=== PATIENT | female | born 1955 | race Caucasian/White ===

== ENCOUNTER 2016-06-09 08:00 | Outpatient (CLI) | payer MEDICARE, MEDICAID | END 2016-06-09 08:01 | disposition home or self-care (01) | DX: E11.9 Type 2 diabetes mellitus without complications (principal); E78.5 Hyperlipidemia, unspecified ==

== ENCOUNTER 2016-08-29 12:19 | Outpatient (CLI) | payer MEDICARE, MEDICAID ==
--- NOTE | 2016-08-30 16:31 | Mammography Report ---
DIGITAL SCREENING LEFT MAMMOGRAM: 08/29/2016 CLINICAL INDICATION: A 61-year-old patient with history of late childbearing, personal history of ri ght breast cancer status post mastectomy. COMPARISON: 03/2015, 09/2013, 09/2012, 08/2011. TECHNIQUE: Routine CC and MLO projections were obtained of the breasts. FINDINGS: The left breast again demonstrates heterogeneously dense fibroglandular parenchyma. No aleman spicious masses, clustered microcalcifications, or regions of architectural distortion are identified . IMPRESSION: BENIGN FINDINGS. RECOMMENDATION: Routine annual screening unless otherwise clinically indicated. BI-RADS category 2, benign findings. STANDARD QUALIFYING STATEMENTS 1. This examination was reviewed with the aid of Computer-Aided Detection (CAD). 2. A negative or benign imaging report should not delay biopsy if clinically suspicious findings are present. Consider surgical consultation if warranted. More than 5% of cancers are not identified by i maging. 3. Dense breasts may obscure an underlying neoplasm. JOB #: [id number] EXT JOB #:[id number]
== END 2016-08-29 12:20 | disposition home or self-care (01) ==
LOC: DI 12:19
PROVIDERS: ATTEND Family Medicine
DX: Z12.31 Encounter for screening mammogram for malignant neoplasm of breast (principal); Z85.3 Personal history of malignant neoplasm of breast; Z90.11 Acquired absence of right breast and nipple

== ENCOUNTER 2016-12-26 14:54 | Outpatient (CLI) | payer MEDICARE, MEDICAID ==
[2016-12-26 19:38] LABS: CHOL/HDL RATIO 4.9 (<4.4); CHOLESTEROL 222 mg/dL; HDL CHOLESTEROL 45 mg/dL; LDL/HDL RATIO 2.4 (<4.4); TRIGLYCERIDES 352 mg/dL; VLDL CHOLESTEROL 70 mg/dL
[2016-12-26 20:50] LABS: HEMOGLOBIN A1C 0.66 g/dL
== END 2016-12-26 14:55 | disposition home or self-care (01) ==
LOC: LAB.WCP 14:54
PROVIDERS: ATTEND Family Medicine
DX: E11.9 Type 2 diabetes mellitus without complications (principal)
CPT/HCPCS: 36415; 80061; 83036; 84443

== ENCOUNTER 2017-04-25 12:15 | Outpatient (CLI) | payer MEDICARE, MEDICAID ==
[2017-04-25 19:12] LABS: BASOPHILS # (AUTO) 0.1 10^3/uL (0.0-0.1); BASOPHILS % (AUTO) 1.1 %; EOSINOPHILS # (AUTO) 0.2 10^3/uL (0.0-0.7); EOSINOPHILS % (AUTO) 1.8 %; HGB - HEMOGLOBIN 11.1 g/dL (12.0-16.0); LYMPHOCYTES # (AUTO) 1.6 10^3/uL (1.5-3.5); LYMPHOCYTES % (AUTO) 17.7 %; MEAN CORPUSCULAR HEMOGLOBIN 28.3 pg (27.0-31.0); MEAN CORPUSCULAR VOLUME 85.7 fL (81.0-99.0); MEAN PLATELET VOLUME 9.2 fL (7.9-10.8); MONOCYTES # (AUTO) 0.4 10^3/uL (0.0-1.0); MONOCYTES % (AUTO) 4.3 %; NEUTROPHILS # (AUTO) 6.6 10^3/uL (1.5-6.6); NEUTROPHILS % (AUTO) 75.1 %; PLT - PLATELET COUNT 330 10^3/uL (130-450); RED BLOOD COUNT 3.93 10^6/uL (4.20-5.40); RED CELL DISTRIBUTION WIDTH 14.1 % (12.0-15.0); WHITE BLOOD COUNT 8.8 x10^3/uL (4.8-10.8)
[2017-04-25 19:14] LABS: ALBUMIN 3.6 g/dL (3.2-5.5); ALKALINE PHOSPHATASE 128 IU/L (42-121); ALT ALANINE AMINOTRANSFERASE 16 IU/L (10-60); AST ASPARTATE AMINOTRANSFERASE 21 IU/L (10-42); BILIRUBIN,TOTAL 0.2 mg/dL (0.2-1.0); BUN - BLOOD UREA NITROGEN 25 mg/dL (6-20); CALCIUM 9.2 mg/dL (8.5-10.3); CARBON DIOXIDE - CO2 24 mmol/L (21-32); CHLORIDE 104 mmol/L (101-111); CHOL/HDL RATIO 4.9 (<4.4); CHOLESTEROL 224 mg/dL; CREATININE 0.9 mg/dL (0.4-1.0); GFR - MDRD 64 (>89); GLUCOSE 168 mg/dL (70-100); HDL CHOLESTEROL 46 mg/dL; LDL CHOLESTEROL,CALCULATED 118 mg/dL; LDL/HDL RATIO 2.6 (<4.4); SODIUM 138 mmol/L (135-145); TOTAL PROTEIN 7.3 g/dL (6.7-8.2); VLDL CHOLESTEROL 60 mg/dL
[2017-04-25 20:02] LABS: HB2 TOTAL 11.8 g/dL; HEMOGLOBIN A1C 0.57 g/dL; HEMOGLOBIN A1C % 6.6 % (4.6-6.2)
== END 2017-04-25 12:16 | disposition home or self-care (01) ==
LOC: LAB.WCP 12:15
PROVIDERS: ATTEND Family Medicine
DX: E11.9 Type 2 diabetes mellitus without complications (principal)
CPT/HCPCS: 36415; 80053; 80061; 83036; 83721; 84443; 85025

== ENCOUNTER 2017-05-23 16:03 | Emergency (ER) | payer MEDICARE, MEDICAID ==
[2017-05-23 16:12] VITALS: BP 121/66
--- NOTE | 2017-05-23 16:57 | XRAY Preliminary Report ---
Exam: XR FOOT 3 VIEW LT IMPRESSION: No acute osseous abnormality with findings suggestive of prior second toe surgery and min [id number] multifocal DJD. [facility] SITE ID: [id number]
--- NOTE | 2017-05-23 17:02 | XRAY Report ---
EXAM: LEFT FOOT RADIOGRAPHY EXAM DATE: 05/23/2017 04:48 PM. CLINICAL HISTORY: Lateral dorsal pain. History of hammertoe surgery and revision. COMPARISON: None. TECHNIQUE: 3 views. FINDINGS: Bones: No acute displaced fracture. No suspicious focal osseous lesion. Moderate plantar traction ent hesophyte. Normal variant os peroneum present. There is fusion of the proximal and middle second phal anges, possibly related to history of hammertoe surgery and revision. Joints: No dislocation/subluxation. [id number] degenerative osteophytic spurring in the midfoot as well mild degenerative spurring at the fifth TMT joint. Minimal degenerative changes at the first MTP and IP joints. Soft Tissues: No focal soft tissue swelling appreciated. IMPRESSION: No acute osseous abnormality with findings suggestive of prior second toe surgery and min [id number] multifocal DJD. [facility] Referring Provider Line: [phone] SITE ID: [id number]
--- NOTE | 2017-05-23 17:06 | ED Physician Documentation ---
PD HPI LOWER EXT INJURY - Stated complaint Stated Complaint: L FOOT PX - Chief complaint Chief Complaint: Ext Problem - History obtained from History obtained from: Patient - History of Present Illness PD HPI LOW EXT INJURY LOCATION: Left, Foot Type of injury: Other (use at cardiac rehab) Where injury occurred: Other (hospital) Timing - onset: Yesterday Timing - duration: Hours Timing - details: Gradual onset, Still present Improved by: Rest Worsened by: Moving, Palpating Associated symptoms: No: Weakness, Numbness, Swelling Contributing factors: No: Anticoagulated Similar symptoms before: Has not had sx before Recently seen: Not recently seen - Additional information Additional information: 61 year old female with a history of hypertension and diabetes has developed pain in the lateral aspect of her left foot. She has been into cardiac rehab and she has been using an elliptical. She feels that she has been wearing good supportive shoes when she has been performing these tasks. Last night she began to develop pain in the lateral aspect of her foot and on the dorsum of her foot. Review of Systems Constitutional: denies: Fever Eyes: denies: Decreased vision Ears: denies: Ear pain Nose: denies: Congestion Throat: denies: Sore throat Cardiac: denies: Chest pain / pressure, Palpitations Respiratory: denies: Dyspnea, Cough GI: denies: Abdominal Pain, Nausea, Vomiting : denies: Dysuria, Frequency PD PAST MEDICAL HISTORY - Past Medical History Cardiovascular: Hypertension Respiratory: CPAP use, Shortness of breath, Sleep apnea Endocrine/Autoimmune: Type 2 diabetes GI: GERD : None HEENT: None Psych: Depression Musculoskeletal: Osteoarthritis, Fibromyalgia, Other Derm: None - Past Surgical History Past Surgical History: Yes Ortho: Carpal Tunnel surgery, Other /MANAGER DIALYSIS: Tubal ligation, Mastectomy - Present Medications Home Medications: Ambulatory Orders Medication Instructions Recorded Confirmed Olmesartan Medoxomil [Benicar] 40 mg PO DAILY 08/01/12 04/24/17 Pramipexole [Mirapex] 0.5 mg PO QPM 08/01/12 04/24/17 Aspirin Chewable [[place] 81 mg PO DAILY 11/28/12 04/24/17 Aspirin] Venlafaxine HCl 37.5 mg PO BID 09/10/13 04/24/17 Anastrozole [Arimidex] 1 mg PO DAILY 03/06/14 04/24/17 Ibuprofen 800 mg PO BID 03/06/14 04/24/17 Ferrous Sulfate 325 mg PO DAILY 05/17/14 04/24/17 Gabapentin 300 mg PO DAILY 05/17/14 04/24/17 Lysine HCl [l-Lysine] 500 mg PO DAILY 05/17/14 04/24/17 Acyclovir 400 mg PO BID 06/10/14 04/24/17 Naproxen 2 tab PO BID 08/31/15 04/24/17 Amlodipine Besylate 1 tab PO DAILY 04/24/17 04/24/17 Carvedilol 1 tab PO BID 04/24/17 04/24/17 Isosorbide Mononitrate [Isosorbide 1 tab PO DAILY 04/24/17 04/24/17 Mononitrate ER] Ticagrelor [Brilinta] 1 tab PO BID 04/24/17 04/24/17 - Allergies Allergies/Adverse Reactions: Allergies Allergy/AdvReac Type Severity Reaction Status Date / Time pravastatin Allergy Severe Lips swell Verified 06/05/14 12:12 codeine [Codeine] Allergy Intermediate Rash Verified 06/05/14 12:13 morphine Allergy Intermediate Itching/Diz Verified 06/05/14 12:13 zieness Penicillins Allergy Intermediate Rash Verified 06/05/14 12:13 hydromorphone HCl * Allergy Respiratory Verified 06/11/14 07:14 [From Dilaudid] lisinopril AdvReac Mild cough Verified 06/05/14 12:13 tape AdvReac Intermediate Blisters Uncoded 05/17/14 12:06 - Social History Does the pt smoke?: No Smoking Status: Never smoker Does the pt drink ETOH?: No Does the pt have substance abuse?: No - Immunizations Immunizations are current?: Yes - POLST Patient has POLST: No PD ED PE NORMAL - Vitals Vital signs reviewed: Yes (Normal) - General General: Alert and oriented X 3, No acute distress, Well developed/nourished - HEENT HEENT: Atraumatic (Normal), PERRL - Neck Neck: Supple, no meningeal sign - Respiratory Respiratory: No respiratory distress - Derm Derm: Normal color, Warm and dry, No rash - Extremities Extremities: No deformity, No edema, Other (There is point tenderness to the lateral aspect of the foot and over the dorsum of the lateral aspect more so on the distal fifth metatarsal than the proximal fifth there is no swelling or point tenderness over the medial or lateral malleolus.) Results - Vitals Vitals: Vital Signs - 24 hr 05/23/17 16:09 Temperature 35.9 C L Heart Rate 88 Respiratory 18 Rate Blood Pressure 121/66 O2 Saturation 99 Oxygen O2 Source Room air - Rads (name of study) foot Radiology: Prelim report reviewed (Impression: No acute osseous abnormality with findings suggestive of prior second toe surgery and minimal to mild multifocal DJD), EMP read indepedently, See rad report PD MEDICAL DECISION MAKING - ED course Complexity details: reviewed results, re-evaluated patient, considered differential, d/w patient, d/w family ED course: 61-year-old female with an injury to her foot which is likely an overuse injury I have asked the patient to reduce her activity wear supportive shoes and resume activity in 2-5 days Departure - Departure Disposition: 01 Home, Self Care Clinical Impression: Strain of foot, left Qualifiers: Encounter type: initial encounter Qualified Code(s): S96.912A - Strain of unspecified muscle and tendon at ankle and foot level, left foot, initial encounter Condition: Stable Instructions: ED Sprain Foot Follow-Up: Олег Hubbard DO [Primary Care Provider] -
== END 2017-05-23 17:18 | disposition home or self-care (01) ==
LOC: ED 16:03
DX: S96.912A Strain of unspecified muscle and tendon at ankle and foot level, left foot, initial encounter (principal); I10 Essential (primary) hypertension; E11.9 Type 2 diabetes mellitus without complications; Z79.82 Long term (current) use of aspirin
CPT/HCPCS: 99283

== ENCOUNTER 2017-08-30 10:44 | Outpatient (CLI) | payer MEDICARE, MEDICAID ==
--- NOTE | 2017-09-04 11:42 | Mammography Report ---
UNILATERAL LEFT MAMMOGRAM: 08/30/2017 HISTORY: Status post right mastectomy for cancer. COMPARISON: 08/29/2016, 04/10/2015, 10/08/2013, 10/01/2012, 05/18/2012, 05/11/2012 and 10/04/2011. TECHNIQUE: Unilateral left CC and MLO projections. FINDINGS: The breast tissue is heterogeneously dense. There is no dominant mass, architectural distortion, skin thickening, clustered suspicious microcalcifications or obvious interval change compared with priors. IMPRESSION: NEGATIVE. BI-RADS CATEGORY 1 - NEGATIVE. RECOMMENDATION: SUGGEST ROUTINE LEFT BREAST FOLLOWUP IN 12 MONTHS. STANDARD QUALIFYING STATEMENTS 1. This examination was reviewed with the aid of Computer-Aided Detection (CAD). 2. A negative or benign imaging report should not delay biopsy if clinically suspicious findings are present. Consider surgical consultation if warranted. More than 5% of cancers are not identified by imaging. 3. Dense breasts may obscure an underlying neoplasm. TD: 08/31/2017 10:06
== END 2017-08-30 10:45 | disposition home or self-care (01) ==
LOC: DI 10:44
PROVIDERS: ATTEND Internal Medicine Hematology & Oncology
DX: Z12.31 Encounter for screening mammogram for malignant neoplasm of breast (principal); Z85.3 Personal history of malignant neoplasm of breast; Z90.11 Acquired absence of right breast and nipple

== ENCOUNTER 2017-11-16 11:44 | Outpatient (CLI) | payer MEDICARE, MEDICAID ==
[2017-11-16 19:08] LABS: BASOPHILS # (AUTO) 0.1 10^3/uL (0.0-0.1); BASOPHILS % (AUTO) 0.9 %; EOSINOPHILS # (AUTO) 0.2 10^3/uL (0.0-0.7); EOSINOPHILS % (AUTO) 2.3 %; HGB - HEMOGLOBIN 12.1 g/dL (12.0-16.0); LYMPHOCYTES # (AUTO) 1.8 10^3/uL (1.5-3.5); MEAN CORPUSCULAR HEMOGLOBIN 28.2 pg (27.0-31.0); MEAN CORPUSCULAR HGB CONC 33.2 g/dL (32.0-36.0); MEAN CORPUSCULAR VOLUME 85.1 fL (81.0-99.0); MEAN PLATELET VOLUME 8.9 fL (7.9-10.8); MONOCYTES # (AUTO) 0.4 10^3/uL (0.0-1.0); NEUTROPHILS # (AUTO) 6.4 10^3/uL (1.5-6.6); NEUTROPHILS % (AUTO) 71.8 %; PLT - PLATELET COUNT 338 10^3/uL (130-450); RED BLOOD COUNT 4.27 10^6/uL (4.20-5.40); RED CELL DISTRIBUTION WIDTH 15.3 % (12.0-15.0)
[2017-11-16 19:21] LABS: ALBUMIN 3.8 g/dL (3.2-5.5); ALBUMIN/GLOBULIN RATIO 1.1 (1.0-2.2); ALKALINE PHOSPHATASE 141 IU/L (42-121); ALT ALANINE AMINOTRANSFERASE 22 IU/L (10-60); AST ASPARTATE AMINOTRANSFERASE 23 IU/L (10-42); BILIRUBIN,TOTAL 0.7 mg/dL (0.2-1.0); BUN - BLOOD UREA NITROGEN 26 mg/dL (6-20); CALCIUM 9.6 mg/dL (8.5-10.3); CARBON DIOXIDE - CO2 26 mmol/L (21-32); CHLORIDE 105 mmol/L (101-111); CHOL/HDL RATIO 5.3 (<4.4); CHOLESTEROL 277 mg/dL; CREATININE 0.8 mg/dL (0.4-1.0); GFR - MDRD 73 (>89); GLUCOSE 139 mg/dL (70-100); HDL CHOLESTEROL 52 mg/dL; LDL CHOLESTEROL,CALCULATED 175 mg/dL; LDL/HDL RATIO 3.4 (<4.4); SODIUM 139 mmol/L (135-145); TOTAL PROTEIN 7.2 g/dL (6.7-8.2); VLDL CHOLESTEROL 50 mg/dL
[2017-11-16 19:26] LABS: THYROID STIMULATING HORMONE 0.85 uIU/mL (0.34-5.60)
[2017-11-16 20:55] LABS: HB2 TOTAL 12.7 g/dL; HEMOGLOBIN A1C 0.67 g/dL
== END 2017-11-16 11:45 ==
LOC: LAB.WCP 11:44
PROVIDERS: ATTEND Family Medicine
DX: E11.9 Type 2 diabetes mellitus without complications (principal); R41.3 Other amnesia
CPT/HCPCS: 36415; 80053; 80061; 82607; 83036; 83721; 84443; 85025

== ENCOUNTER 2018-10-29 13:53 | Outpatient (CLI) | payer MEDICARE, MEDICAID ==
--- NOTE | 2018-10-30 09:00 | Mammography Report ---
Reason: SCREENING MAMMO, R BREAST CANCER Procedure Date: 10/29/2018 Accession Number: [id number] / [id number] Procedure: [facility]YA[facility] - Screening Mammo Left w/Gary CPT Code: FULL RESULT: EXAM: Screening Mammo Left w/Gary DATE: 10/29/2018 2:28 PM CLINICAL HISTORY: Screening encounter. History of late childbearing. Personal history of right breast cancer status post mastectomy in 2012. TECHNIQUE: (L) - Left CC, laterally exaggerated CC, MLO views were obtained. COMPARISON: 08/30/2017 through 10/08/2013. PARENCHYMAL PATTERN: (D) - The breast(s) demonstrate(s) heterogeneously dense fibroglandular parenchyma. FINDINGS: There are no suspicious masses, calcifications, or areas of distortion. IMPRESSION: Negative examination. BI-RADS category 1. RECOMMENDATION: (ANNUAL) - Recommend routine annual screening mammography. BI-RADS CATEGORY: (1) - Negative. STANDARD QUALIFYING STATEMENTS: 1. This examination was not reviewed with the aid of Computer-Aided Detection (CAD). 2. A negative or benign imaging report should not preclude biopsy if clinically suspicious findings are present. 3. Dense breasts may obscure an underlying neoplasm. 4. This examination was reviewed with the aid of 3D breast imaging (tomosynthesis).
== END 2018-10-29 13:54 | disposition home or self-care (01) ==
LOC: DI 13:53
PROVIDERS: ATTEND Internal Medicine Hematology & Oncology
DX: Z12.31 Encounter for screening mammogram for malignant neoplasm of breast (principal); Z08 Encounter for follow-up examination after completed treatment for malignant neoplasm; Z85.3 Personal history of malignant neoplasm of breast
CPT/HCPCS: 77063

== ENCOUNTER 2019-03-13 13:32 | Outpatient (CLI) | payer MEDICARE, MEDICAID ==
[2019-03-13 18:22] LABS: BASOPHILS % (AUTO) 0.5 %; EOSINOPHILS # (AUTO) 0.1 10^3/uL (0.0-0.7); EOSINOPHILS % (AUTO) 1.1 %; HGB - HEMOGLOBIN 11.3 g/dL (12.0-16.0); LYMPHOCYTES # (AUTO) 1.7 10^3/uL (1.5-3.5); MEAN CORPUSCULAR HEMOGLOBIN 26.9 pg (27.0-31.0); MEAN CORPUSCULAR HGB CONC 30.7 g/dL (32.0-36.0); MEAN CORPUSCULAR VOLUME 87.6 fL (81.0-99.0); MEAN PLATELET VOLUME 10.9 fL (7.9-10.8); MONOCYTES # (AUTO) 0.5 10^3/uL (0.0-1.0); MONOCYTES % (AUTO) 5.7 %; NEUTROPHILS # (AUTO) 5.8 10^3/uL (1.5-6.6); NEUTROPHILS % (AUTO) 71.3 %; PLT - PLATELET COUNT 347 10^3/uL (130-450); RED CELL DISTRIBUTION WIDTH 14.6 % (12.0-15.0); WHITE BLOOD COUNT 8.2 x10^3/uL (4.8-10.8)
[2019-03-13 18:57] LABS: ALBUMIN 3.8 g/dL (3.2-5.5); ALKALINE PHOSPHATASE 111 IU/L (42-121); ALT ALANINE AMINOTRANSFERASE 20 IU/L (10-60); AST ASPARTATE AMINOTRANSFERASE 24 IU/L (10-42); BILIRUBIN,TOTAL 0.7 mg/dL (0.2-1.0); BUN - BLOOD UREA NITROGEN 16 mg/dL (6-20); CALCIUM 9.2 mg/dL (8.5-10.3); CARBON DIOXIDE - CO2 28 mmol/L (21-32); CHLORIDE 101 mmol/L (101-111); CHOL/HDL RATIO 4.2 (<4.4); CHOLESTEROL 214 mg/dL; CREATININE 1.4 mg/dL (0.4-1.0); GFR - MDRD 38 (>89); GLUCOSE 201 mg/dL (70-100); HDL CHOLESTEROL 51 mg/dL; LDL CHOLESTEROL,CALCULATED 128 mg/dL; LDL/HDL RATIO 2.5 (<4.4); SODIUM 138 mmol/L (135-145); TOTAL PROTEIN 7.7 g/dL (6.7-8.2); VLDL CHOLESTEROL 35 mg/dL
[2019-03-13 19:09] LABS: HB2 TOTAL 11.8 g/dL; HEMOGLOBIN A1C 0.77 g/dL; HEMOGLOBIN A1C % 8.1 % (4.6-6.2)
[2019-03-13 19:20] LABS: CREATININE,URINE 553.6 mg/dL; MICROALBUM/CREATININE RATIO,UR 102.2 ug/mg (<30.0); MICROALBUMIN,URINE 56.6 mg/dL (0-300.0)
== END 2019-03-13 23:59 | disposition home or self-care (01) ==
LOC: LAB.WCP 13:32
PROVIDERS: ATTEND Family Medicine
DX: E11.9 Type 2 diabetes mellitus without complications (principal)
CPT/HCPCS: 36415; 80053; 80061; 82043; 82570; 83036; 83721; 84443; 85025

== ENCOUNTER 2020-03-30 14:20 | Outpatient (CLI) | payer MEDICARE, MEDICAID ==
[2020-03-30 18:54] LABS: BASOPHILS # (AUTO) 0.1 10^3/uL (0.0-0.1); BASOPHILS % (AUTO) 0.5 %; EOSINOPHILS # (AUTO) 0.1 10^3/uL (0.0-0.7); HGB - HEMOGLOBIN 11.5 g/dL (12.0-16.0); LYMPHOCYTES # (AUTO) 1.8 10^3/uL (1.5-3.5); LYMPHOCYTES % (AUTO) 17.4 %; MEAN CORPUSCULAR HEMOGLOBIN 27.3 pg (27.0-31.0); MEAN CORPUSCULAR HGB CONC 30.9 g/dL (32.0-36.0); MEAN CORPUSCULAR VOLUME 88.2 fL (81.0-99.0); MEAN PLATELET VOLUME 11.3 fL (7.9-10.8); MONOCYTES # (AUTO) 0.6 10^3/uL (0.0-1.0); MONOCYTES % (AUTO) 5.4 %; NEUTROPHILS # (AUTO) 7.6 10^3/uL (1.5-6.6); NEUTROPHILS % (AUTO) 75.2 %; PLT - PLATELET COUNT 346 10^3/uL (130-450); RED BLOOD COUNT 4.22 10^6/uL (4.20-5.40); RED CELL DISTRIBUTION WIDTH 14.6 % (12.0-15.0); WHITE BLOOD COUNT 10.1 x10^3/uL (4.8-10.8)
[2020-03-30 19:04] LABS: ALBUMIN 3.7 g/dL (3.2-5.5); ALBUMIN/GLOBULIN RATIO 0.9 (1.0-2.2); ALKALINE PHOSPHATASE 132 IU/L (42-121); ALT ALANINE AMINOTRANSFERASE 21 IU/L (10-60); AST ASPARTATE AMINOTRANSFERASE 21 IU/L (10-42); BILIRUBIN,TOTAL 0.7 mg/dL (0.2-1.0); BUN - BLOOD UREA NITROGEN 24 mg/dL (6-20); CALCIUM 9.4 mg/dL (8.5-10.3); CARBON DIOXIDE - CO2 25 mmol/L (21-32); CHLORIDE 100 mmol/L (101-111); CHOL/HDL RATIO 3.4 (<4.4); CHOLESTEROL 218 mg/dL; CREATININE 1.1 mg/dL (0.4-1.0); GLUCOSE 262 mg/dL (70-100); HDL CHOLESTEROL 64 mg/dL; LDL CHOLESTEROL,CALCULATED 102 mg/dL; LDL/HDL RATIO 1.6 (<4.4); MAGNESIUM 2.2 mg/dL (1.7-2.8); SODIUM 136 mmol/L (135-145); TOTAL PROTEIN 7.6 g/dL (6.7-8.2); URIC ACID 7.3 mg/dL (2.6-7.2); VLDL CHOLESTEROL 52 mg/dL
== END 2020-03-30 23:59 | disposition home or self-care (01) ==
LOC: LAB.WCP 14:20
PROVIDERS: ATTEND Family Medicine
DX: E11.9 Type 2 diabetes mellitus without complications (principal); R00.2 Palpitations; M25.50 Pain in unspecified joint
CPT/HCPCS: 36415; 80053; 80061; 82043; 83036; 83721; 83735; 84443; 84550; 85025